=== PATIENT | male | born 1950 | race Caucasian/White ===

== ENCOUNTER 2018-06-10 06:10 | Day surgery (SDC) | payer OTHER | END 2018-06-10 13:05 | disposition home or self-care (01) | LOC: AMB-ENDOS 06:10 → CIR.AMB 09:44 → AMB-ENDOS 13:05 | DX: K57.30 Diverticulosis of large intestine without perforation or abscess without bleeding (principal); Z86.010 Personal history of colon polyps ==

== ENCOUNTER 2018-07-30 07:32 | Day surgery (SDC) | payer OTHER ==
[~2018-07-30 07:32] MED LIST: AMARYL PO; GABAPENTIN400 MG PO; METFORMIN HCL500 MG PO; TOPROL XL25 M1 PO; ZOCOR20 MG PO; [UNRECOGNIZED DRUG - OTHER] PO
[2018-07-30] MEDS ORDERED: PERCOCET 5-3251 EACH PO (14:09)
== END 2018-07-30 17:55 | disposition home or self-care (01) ==
LOC: CIR.AMB 07:32
DX: C20 Malignant neoplasm of rectum (principal); C78.7 Secondary malignant neoplasm of liver and intrahepatic bile duct
CPT/HCPCS: 36561; C1751